=== PATIENT | female | born 1965 | race Caucasian/White ===

== ENCOUNTER 2020-07-19 09:47 | Outpatient (CLI) | payer MEDICARE, MEDICAID | END 2020-07-19 09:48 | disposition home or self-care (01) | LOC: CSHCT 09:47 | PROVIDERS: ATTEND Internal Medicine Gastroenterology | DX: R10.9 Unspecified abdominal pain (principal); K85.90 Acute pancreatitis without necrosis or infection, unspecified; K86.89 Other specified diseases of pancreas; I86.4 Gastric varices; M43.17 Spondylolisthesis, lumbosacral region; I70.90 Unspecified atherosclerosis | CPT/HCPCS: 74170 ==